=== PATIENT | male | born 1995 | race Caucasian/White ===

== ENCOUNTER 2016-10-15 14:21 | Emergency (ER) | payer SELFPAY ==
[2016-10-15 14:27] VITALS: O2SAT 94
[2016-10-15] MEDS ORDERED: FLUORESCEIN SODIUM 1 MG STRIP OP ONE (15:11)
[2016-10-15] MEDS ORDERED: PROPARACAINE 0.5% 15 ML OPHT DROP ONE (15:12)
--- NOTE | 2016-10-15 15:14 | EDPHY ---
H & P Time Seen by Provider: 10/15/16 15:06 HPI/ROS: CHIEF COMPLAINT: Left eye pain HISTORY OF PRESENT ILLNESS: this is a 20-year-old male presenting to the emergency department complaining of left eye pain. patient states initial symptoms were yesterday after he got off work he is a construction job cost estimator wears his goggles with the side even,ts but after work his I started irritating and he has been rubbing it since last night. he reports more pain today no vision changes, " feels like there stand my eye" no changes in vision, does not wear contacts. REVIEW OF SYSTEMS: Constitutional: No fever, no chills. Eyes: No discharge. no blurred vision. left eye pain with redness ENT: No sore throat. Cardiovascular: No chest pain, no palpitations. Respiratory: No cough, no shortness of breath. Musculoskeletal: No back pain. Skin: No rashes. Neurological: No headache. Smoking Status: Current every day smoker Physical Exam: General Appearance: Alert and no distress. HEENT: normocephalic atraumatic. Pupils equal and round, reactive. left eye injected, conjunctival erythema. EOMs intact Respiratory: Chest is nontender, lungs are clear to auscultation. Cardiac: regular rate and rhythm Musculoskeletal: Neck is supple and nontender. Extremities have full range of motion and are nontender. Skin: No rashes or lesions. Constitutional: Initial Vital Signs Temperature (C) 36.7 C 10/15/16 14:25 Heart Rate 97 10/15/16 14:25 Respiratory Rate 17 10/15/16 14:25 Blood Pressure 130/83 H 10/15/16 14:25 O2 Sat (%) 94 10/15/16 14:25 O2 Delivery Mode Room Air Allergies/Adverse Reactions: Penicillins Allergy (Verified 10/15/16 14:24) Home Medications: Medication Instructions Recorded Erythromycin 0.5% 3.5 gm OP Q6 #1 opht.oint 10/15/16 ED Images - Head Eyes Right/Left: 1 - Corneal abrasion 2 - Conjunctival abrasion Medical Decision Making Procedures: Procedure: Slit lamp Anesthesia: Topical. After verbal consent from the patient, proparacaine was used as anesthesia to left eye. fluorescein strip used. upper eyelid was inverted no foreign body noted, left eye shows corneal abrasion at the base of cornea, conjunctival micro abrasions above cornea. There were no complications and the patient tolerated the procedure well. The procedure was performed by myself. ED Course/Re-evaluation: discussed ED plan of care: proparacaine left eye, eye evaluation 1545: discussed findings of slit lamp fluorescein exam positive corneal abrasion along with conjunctival abrasion 1600: discharge home---> stable, discussed discharge instructions with patient Differential Diagnosis: other differential diagnosis considered but not limited to foreign body left eye, bacterial conjunctivitis, and corneal laceration Departure - Departure Disposition: Home, Routine, Self-Care Clinical Impression: Corneal abrasion Qualifiers: Encounter type: initial encounter Laterality: left Qualified Code(s): S05.02XA - Injury of conjunctiva and corneal abrasion without foreign body, left eye, initial encounter Condition: Good Instructions: Corneal Abrasion (ED) Additional Instructions: 1. The use eye antibiotics as prescribed 2. wear sunglasses, as sunlight can irritate your eye 3. decreased visual stimulation 4. I would also recommend following up with Ophthalmology in the next 3-5 days Referrals: NONE *PRIMARY CARE P,. [Primary Care Provider] - As per Instructions [facility],. [Clinic] - As per Instructions Stand Alone Forms: Work Excuse Prescriptions: Erythromycin 0.5% 3.5 gm OP Q6 #1 opht.oint
[2016-10-15 16:10] VITALS: BP 128/78; PULSE 74; RESP 16; TEMP 97.5
== END 2016-10-15 16:05 | disposition home or self-care (01) ==
DX: S05.02XA Injury of conjunctiva and corneal abrasion without foreign body, left eye, initial encounter (principal); F17.200 Nicotine dependence, unspecified, uncomplicated; X58.XXXA Exposure to other specified factors, initial encounter; Y92.69 Other specified industrial and construction area as the place of occurrence of the external cause; Y99.0 Civilian activity done for income or pay